=== PATIENT | male | born 1995 | race Hispanic/Latino ===

== ENCOUNTER 2017-11-22 20:53 | Emergency (ER) | payer OTHER ==
[~2017-11-22] VITALS: Ht 165.1 cm; Wt 84.8 kg
[2017-11-22] MEDS ORDERED: HYDROCODONE/APAP 5MG-325MG TAB PO ONE (21:45)
== END 2017-11-22 21:45 | disposition home or self-care (01) ==
LOC: FSED 20:53
DX: K02.9 Dental caries, unspecified (principal); K04.7 Periapical abscess without sinus
CPT/HCPCS: 99282

== ENCOUNTER 2024-05-08 14:48 | Emergency (ER) | payer SELFPAY ==
[~2024-05-08] VITALS: Ht 165.1 cm; Wt 84.8 kg
[2024-05-08] MEDS ORDERED: ONDANSETRON HCL INJ 2MG/ML 2ML 2 MG/ML VIAL IV STA (14:54)
[2024-05-08] MEDS ORDERED: DICYCLOMINE HCL 20 MG/2 ML VIAL IM ONE (15:00)
[2024-05-08 15:10] VITALS: PULSE 75; RESP 17; TEMP 98.1; O2SAT 99
[2024-05-08 15:56] VITALS: BP 155/74; PULSE 78; RESP 16; TEMP 98.4
== END 2024-05-08 16:06 | disposition home or self-care (01) ==
LOC: ER 14:55
DX: D17.0 Benign lipomatous neoplasm of skin and subcutaneous tissue of head, face and neck (principal)
CPT/HCPCS: 99282